=== PATIENT | male | born 1960 | race African-American/Black ===

== ENCOUNTER 2020-11-09 23:50 | Emergency (ER) | payer OTHER ==
[2020-11-09 23:56] VITALS: BMI 31.6
[2020-11-10] MEDS ORDERED: morphine CARPU-JECT 4 MG/1 ML DISP.SYRIN IVPUSH ONE (00:10)
[2020-11-10] MEDS ORDERED: MORPHINE SULFATE 2 MG/ML VIAL ONE (00:20)
[2020-11-10 00:25] LABS: BASO % 0.9 % (0-2.0); HEMATOCRIT 43.5 % (35.4-49); HEMOGLOBIN 14.2 GM/dL (11.7-16.9); LYMPH % 8.3 % (8-40); MCH 28.7 pg (25.7-33.7); MCHC 32.6 g/dl (32.0-35.9); MEAN PLT VOLUME 9.6 fl (7.5-11.1); NEUT % 86.8 % (42.8-82.8); PLATELET COUNT 187 K/MM3 (134-434); RBC 4.94 M/mm3 (4.00-5.60); RDW 13.4 % (11.9-15.9); WHITE BLOOD COUNT 9.7 K/mm3 (4.0-10.0)
[2020-11-10] MEDS ORDERED: morphine CARPU-JECT 2 MG/1 ML DISP.SYRIN IVPUSH ONE (00:26)
[2020-11-10 00:34] LABS: INR 1.03 (0.83-1.09); PROTHROMBIN TIME (PATIENT) 12.5 SEC (9.7-13.0)
[2020-11-10 00:37] LABS: ACTIVATED PTT 38.2 SECONDS (25.2-36.5)
[2020-11-10 00:43] LABS: CHLORIDE 106 mmol/L (98-107); SODIUM 142 mmol/L (136-145)
[2020-11-10 00:45] LABS: ALBUMIN 4.5 g/dl (3.4-5.0); ANION GAP 7 MMOL/L (8-16); BLOOD UREA NITROGEN 13.6 mg/dL (7-18); CO2 29 mmol/L (21-32)
[2020-11-10 00:46] LABS: GLUCOSE,RANDOM 109 mg/dL (74-106)
[2020-11-10 00:48] LABS: CREATININE 1.2 mg/dL (0.55-1.3); SGOT/AST 28 U/L (15-37); SGPT/ALT 34 U/L (13-61)
[2020-11-10 00:50] LABS: BILIRUBIN,TOTAL 0.4 mg/dL (0.2-1); TOT PROT 8.1 g/dl (6.4-8.2)
[2020-11-10 00:51] LABS: ALK PHOS 71 U/L (45-117)
[2020-11-10] MEDS ORDERED: MAGNESIUM SULF 50% (8.12 MEQ/2 ML-1 GM VIAL) IVPB ONE (00:54)
[2020-11-10] MEDS ORDERED: POTASSIUM CHLORIDE TABS 20 MEQ TABLET.ER (FP) PO ONE ×2 (00:54→00:58)
[2020-11-10] MEDS ORDERED: MAGNESIUM SULFATE IN WATER 2 GM/50 ML IVPB IVPB ONE (00:59)
[2020-11-10] MEDS ORDERED: HYDROmorphone HCL CARPU-JECT 2 MG/1 ML DISP.SYRIN IVPUSH ONE (02:27)
[2020-11-10] MEDS ORDERED: HYDROmorphone HCl 2 MG/ML VIAL ONE (02:28)
[2020-11-10 05:00] VITALS: BP 173/96; PULSE 62; TEMP 99
== END 2020-11-10 06:21 | disposition short-term general hospital (02) ==
LOC: JER 23:50
PROC: 3E033NZ Introduction of Analgesics, Hypnotics, Sedatives into Peripheral Vein, Percutaneous Approach (ICD-10-PCS; principal; 2020-11-09)
PROC: 3E033GC Introduction of Other Therapeutic Substance into Peripheral Vein, Percutaneous Approach (ICD-10-PCS; 2020-11-09)
PROC: 3E033NZ Introduction of Analgesics, Hypnotics, Sedatives into Peripheral Vein, Percutaneous Approach (ICD-10-PCS; 2020-11-09)
DX: S02.652A Fracture of angle of left mandible, initial encounter for closed fracture (principal)
CPT/HCPCS: 36415; 70450-TC; 70486-TC; 71045-TC-FY; 72125-TC; 72170-TC-FY; 80053; 82550; 82553; 84484; 85025; 85610; 85730; 86850; 86900; 86901; 93005; 93010; 99285-25